=== PATIENT | female | born 1985 | race Two or more races ===

== ENCOUNTER 2019-06-02 02:43 | Emergency (ER) | payer MEDICAID ==
[~2019-06-02] VITALS: Ht 149.9 cm; Wt 50.3 kg
--- NOTE | 2019-06-02 02:46 | NUR ---
PT BIB EMS C/O POSS SYNCOPE. (+) URINARY INCONTINENCE. PER EMS PT WAS NOTED HYPERVENTILATING. PT C/O GUM PAIN S/P MULTI TOOTH EXTRACTION TODAY. PT AOX4. NAD NOTED. RESP EVEN AND UNLABORED. PT ON MONITOR IN BED 3. WILL CONTINUE TO MONITOR.
--- NOTE | 2019-06-02 03:11 | NUR ---
TECH AT BEDSIDE FOR EKG
--- NOTE | 2019-06-02 03:18 | NUR ---
BLOOD DRAWN AND GIVEN TO LAB
[2019-06-02 03:23] LABS: BASOPHILS % (AUTO) 0.4 % (0.0-2.0); EOSINOPHILS % (AUTO) 10.9 % (0.0-6.0); HEMATOCRIT 39 % (33-45); LYMPHOCYTES # (AUTO) 2.5 /CMM (0.8-4.8); LYMPHOCYTES % (AUTO) 23.3 % (20.0-44.0); MEAN CORPUSCULAR HGB CONC 33 g/dl (31.0-36.0); MEAN CORPUSCULAR VOLUME 96 fL (82-100); MONOCYTES # (AUTO) 0.6 /CMM (0.1-1.30); NEUTROPHILS # (AUTO) 6.5 /CMM (1.8-8.9); NEUTROPHILS % (AUTO) 59.4 % (43.0-81.0); PLATELET COUNT (AUTO) 338 /CMM (150-450); RED BLOOD CELL COUNT(AUTO) 4.08 MIL/uL (4.0-5.2); WHITE BLOOD COUNT (AUTO) 10.9 K/uL (4.3-11.0)
[2019-06-02 03:30] LABS: CALCIUM, SERUM 9.2 mg/dL (8.5-10.1); CARBON DIOXIDE 28 mmol/L (21-32); CHLORIDE 105 mmol/L (98-107); CREATININE 0.9 mg/dL (0.6-1.3); GLUCOSE 104 mg/dL (74-106); POTASSIUM 3.8 mmol/L (3.5-5.1); SODIUM SERUM 138 mmol/L (136-145); UREA NITROGEN, BLOOD 26 mg/dL (7-18)
[2019-06-02 03:35] LABS: ALANINE AMINOTRANSFERASE 17 U/L (12-78); ALBUMIN 3.9 g/dL (3.4-5.0); ALKALINE PHOSPHATASE 70 U/L (46-116); ASPARTATE AMINOTRANSFERASE 15 U/L (15-37); BILIRUBIN,TOTAL 0.1 mg/dL (0.2-1.0); TOTAL PROTEIN, SERUM 7.4 g/dL (6.4-8.2)
--- NOTE | 2019-06-02 03:47 | NUR ---
PT TAKEN TO RADIOLOGY VIA [facility]GG[facility]
--- NOTE | 2019-06-02 04:01 | NUR ---
PT RETRUNED FROM RADIOLOGY VIA [facility]
[2019-06-02] MEDS ORDERED: ACETAMINOPHEN ES 500 MG TABLET ONE (04:42)
[2019-06-02] MEDS ORDERED: ACETAMINOPHEN 325 MG TABLET PO ONE (05:00)
[2019-06-02] MEDS ORDERED: IV NS 0.9% 1,000 ML BAG IV ONE (05:00)
[2019-06-02 05:42] VITALS: BP 94/56
--- NOTE | 2019-06-02 06:12 | NUR ---
IV removed. Catheter intact and site benign. Pressure and 4x4 applied to site. No bleeding noted.Patient discharged to home in stable condition. Written and verbal after care instructions given. Patient verbalizes understanding of instruction. PT AMBULATORY WITH STEADY GAIT ACCOMPANIED BY FRIENDS.
== END 2019-06-02 06:13 | disposition home or self-care (01) ==
LOC: ER 02:45
DX: R55 Syncope and collapse (principal); F17.200 Nicotine dependence, unspecified, uncomplicated
CPT/HCPCS: 36415; 70450; 71045; 80048; 80076; 80305; 84484; 84703; 85025; 93005; 96360; 99284; J7030